=== PATIENT | female | born 1985 | race Caucasian/White ===

== ENCOUNTER 2018-04-22 17:48 | Emergency (ER) | payer OTHER ==
[2018-04-22] MEDS ORDERED: KETOROLAC 30 MG/ML 1 ML VIAL IM STA (18:21)
[2018-04-22] MEDS ORDERED: IBUPROFEN 600 MG TAB PO STA (18:42)
[2018-04-22] MEDS ORDERED: ACETAMINOPHEN TAB 500 MG TAB PO STA (18:42)
--- NOTE | 2018-04-22 19:05 | ED ---
General Adult HPI - General Chief complaint: Urogenital Stated complaint: back pain Time Seen by Provider: 04/22/18 18:08 Source: patient Mode of arrival: ambulatory Limitations: no limitations - History of Present Illness Initial comments: 32-year-old female patient presents to the emergency department today for evaluation of right low back pain. Patient states pain started around 11:00 this morning. Patient states the pain has been constant since. She denies any radiation of the pain down her legs. Denies numbness, tingling, or weakness to her extremities. Denies any saddle anesthesia or loss of bowel or bladder control. States the pain does worsen with movement. She is concerned she may have a kidney infection. Patient states she is currently on her period. She denies chance of , states she has an IUD. She denies any abdominal pain. States she's been having urinary frequency but denies any dysuria or urinary urgency. Denies any fever, chills, nausea, or vomiting. Patient denies any recent rash, shortness breath, chest pain, diarrhea, constipation, numbness , tingling, dizziness, weakness, hematuria, dysuria, urinary urgency, urinary frequency, headache, visual changes, or any other complaints. - Related Data Previous Rx's Medication Instructions Recorded Cyclobenzaprine [Flexeril] 10 mg PO TID #15 tab 04/22/18 Ibuprofen [Motrin] 600 mg PO Q8HR PRN #30 tab 04/22/18 Allergies Allergy/AdvReac Type Severity Reaction Status Date / Time No Known Allergies Allergy Verified 04/22/18 18:37 Review of Systems ROS Statement: Those systems with pertinent positive or pertinent negative responses have been documented in the HPI. ROS Other: All systems not noted in ROS Statement are negative. Past Medical History Past Medical History: No Reported History History of Any Multi-Drug Resistant Organisms: None Reported Past Surgical History: No Surgical Hx Reported Past Psychological History: No Psychological Hx Reported Smoking Status: Current every day smoker Past Alcohol Use History: None Reported Past Drug Use History: None Reported General Exam Limitations: no limitations General appearance: alert, in no apparent distress, other (Physical well- developed, well-nourished adult female patient in no acute distress. Vital signs upon presentation are temperature 98.0F, pulse 100, respirations 20, blood pressure 125/74, pulse ox 100% on room air.) Eye exam: Present: normal appearance, PERRL, EOMI. Absent: scleral icterus, conjunctival injection, periorbital swelling ENT exam: Present: normal exam, normal oropharynx, mucous membranes moist Respiratory exam: Present: normal lung sounds bilaterally. Absent: respiratory distress, wheezes, rales, rhonchi, stridor Cardiovascular Exam: Present: regular rate, normal rhythm, normal heart sounds. Absent: systolic murmur, diastolic murmur, rubs, gallop, clicks GI/Abdominal exam: Present: soft, normal bowel sounds. Absent: distended, tenderness, guarding, rebound, rigid Extremities exam: Present: normal inspection, full ROM, normal capillary refill. Absent: tenderness, pedal edema, joint swelling, calf tenderness Back exam: Present: normal inspection. Absent: CVA tenderness (R), CVA tenderness (L) Neurological exam: Present: alert, oriented X3, CN II-XII intact Psychiatric exam: Present: normal affect, normal mood Skin exam: Present: warm, dry, intact, normal color. Absent: rash Course Vital Signs 04/22/18 17:58 Temperature 98 F Pulse Rate 100 Respiratory 20 Rate Blood Pressure 125/74 O2 Sat by Pulse 100 Oximetry Medical Decision Making - Medical Decision Making 32-year-old female patient presents to the emergency department today for evaluation of right low back pain that started around 11:00 this morning. Patient does report increased pain with movement. Physical examination is unremarkable. She is neurologically and neurovascularly intact. She has no concerning symptoms for cauda equina. Patient was concerned about kidney infection. Urinalysis was obtained and did show 36 red blood cells, patient is on her period. There is no white blood cells and no bacteria present in the urine, low suspicion for infection at this point. She'll be discharged home to follow-up with her primary care physician. Symptoms are consistent with mechanical low back pain. We'll give Flexeril and ibuprofen. She is instructed by warm moist heat and do gentle range of motion exercises. Return parameters discussed in detail. She verbalizes understanding and agrees with this plan. - Lab Data Lab Results 04/22/18 04/22/18 Range/Units 18:38 18:38 Urine Color Yellow Urine Appearance Clear (Clear) Urine pH 5.5 (5.0-8.0) Ur Specific [place] 1.010 (1.001-1.035) Urine Protein Negative (Negative) Urine Glucose (UA) Negative (Negative) Urine Ketones Negative (Negative) Urine Blood Large H (Negative) Urine Nitrite Negative (Negative) Urine Bilirubin Negative (Negative) Urine Urobilinogen <2.0 (<2.0) mg/dL Ur Leukocyte Esterase Negative (Negative) Urine RBC 56 H (0-5) /hpf Urine WBC 1 (0-5) /hpf Ur Squamous Epith Cells 1 (0-4) /hpf Urine Mucus Rare H (None) /hpf Urine HCG, Qual Not Detected (Not Detectd) Disposition Clinical Impression: Acute low back pain Disposition: HOME SELF-CARE Condition: Good Instructions (If sedation given, give patient instructions): Acute Low Back Pain (ED), Lower Back Exercises (ED) Additional Instructions: Take medications as directed. Perform gentle range of motion exercises. Apply heat to the area. Follow up with her primary care physician for recheck in 1-2 days. Return to the emergency department immediately for any new, worsening, or concerning symptoms. Prescriptions: Cyclobenzaprine [Flexeril] 10 mg PO TID #15 tab Ibuprofen [Motrin] 600 mg PO Q8HR PRN #30 tab PRN Reason: Pain Is patient prescribed a controlled substance at d/c from ED?: No Referrals: Daron Ponce MD [Primary Care Provider] - 1-2 days Time of Disposition: 19:24
[2018-04-22 19:06] LABS: Appearance,Urine Clear (Clear); Bilirubin,Urine Negative (Negative); Blood,Urine Large (Negative); Color,Urine Yellow; Glucose,Urine (UA) Negative (Negative); Ketones,Urine Negative (Negative); Leukocyte Esterase,Urine Negative (Negative); Mucus,Urine Rare /hpf; Nitrite,Urine Negative (Negative); PH, Urine 5.5 (5.0-8.0); Protein,Urine Negative (Negative); RBC,Urine 56 /hpf (0-5); Squamous Epithelial Cell,Urine 1 /hpf (0-4); Urobilinogen,Urine <2.0 mg/dL (<2.0); WBC,Urine 1 /hpf (0-5)
[2018-04-22 19:35] VITALS: BP 118/70; PULSE 90; RESP 18; TEMP 97.9
== END 2018-04-22 19:35 | disposition home or self-care (01) ==
LOC: EC 17:48
DX: M54.5 Low back pain (principal); Z32.02 Encounter for pregnancy test, result negative; F17.200 Nicotine dependence, unspecified, uncomplicated; Z97.5 Presence of (intrauterine) contraceptive device
CPT/HCPCS: 81001; 81025; 99283